=== PATIENT | male | born 1995 | race Two or more races ===

== ENCOUNTER 2024-01-14 18:03 | Emergency (ER) | payer OTHER ==
[2024-01-14] MEDS: valACYclovir 1,000 MG Tab PO STA (18:55)
[2024-01-14] MEDS: predniSONE 20 MG Tab PO ONE (18:55)
[2024-01-14 19:11] VITALS: BP 150/82; PULSE 95
== END 2024-01-14 19:00 | disposition home or self-care (01) ==
LOC: VM.ED 18:03
DX: B00.9 Herpesviral infection, unspecified (principal)
CPT/HCPCS: 99282; 99283; A9270-GY; J7512